=== PATIENT | female | born 1935 | race Caucasian/White ===

== ENCOUNTER → 2016-10-05 | Outpatient (CLI) | payer BC, OTHER ==
[~2016-10-05] MED LIST: ADVIN50/60 INH; ALBUAER2 INH; ASPI81TA28 PO; CYCL0.052 OPB; CYCL5TAB PO; DEXL60CA4 PO; EFFSR375 PO; FLUT0.15 NAE; FLUT1INH7 INH; FLX/5 PO; KLN5X PO; LDDP5 TOP; LEVO75TA5 PO; MIRA1TAB3 PO; MULT-506 PO; MYR25 PO; NRN100 PO; NRV/5 PO; NRV5 PO; NSNN50 NAE; POLY335025 PO; POTA1TAB PO; PRM/45 PO; PRM625 PO; SPRIN/30 INH; TIOT1SPR INH; ULT/50 PO; VENL37.593 PO; VNTHFA/IN INH; ZLF/100 PO; ZLF50 PO
--- NOTE | 2016-10-05 15:01 | DIAGNOSTIC IMAGING REPORT ---
CHEST 2 VIEWS ROUTINE CLINICAL HISTORY: Cough. COPD exacerbation. COMPARISON STUDY: Chest radiograph March 11, 2016. FINDINGS: Blunting of the right costophrenic angle is chronic. Cardiac size is normal. Mediastinal contours are stable. There is no evidence of pulmonary edema. No consolidation is identified to suggest pneumonia. The appearance of the chest is unchanged. Mild elevation of the right hemidiaphragm is unchanged. IMPRESSION: No acute cardiopulmonary findings. No change in appearance of the chest. Electronically signed by: Tru Howard M.D. 10/05/2016 2:59 PM
== END | disposition home or self-care (01) ==
LOC: C.RAD 14:26
PROVIDERS: ATTEND Internal Medicine
DX: J44.1 Chronic obstructive pulmonary disease with (acute) exacerbation (principal); R05 Cough

== ENCOUNTER 2016-12-14 13:29 | Emergency (ER) | payer BC, OTHER ==
[~2016-12-14 13:29] MED LIST changes: -ASPI81TA28 PO; -CYCL0.052 OPB; -CYCL5TAB PO; -DEXL60CA4 PO; -EFFSR375 PO; -FLUT0.15 NAE; -FLUT1INH7 INH; -FLX/5 PO; -KLN5X PO; -LDDP5 TOP; -LEVO75TA5 PO; -MULT-506 PO; -MYR25 PO; -NRN100 PO; -NRV/5 PO; -NRV5 PO; -POLY335025 PO; -POTA1TAB PO; -PRM/45 PO; -TIOT1SPR INH; -ULT/50 PO; -VENL37.593 PO; -VNTHFA/IN INH; -ZLF50 PO
[2016-12-14 13:36] VITALS: TEMP 37
[2016-12-14] MEDS ORDERED: FLX/5 PO (14:20)
[2016-12-14] MEDS ORDERED: VNTHFA/IN INH (14:21)
[2016-12-14 14:49] LABS: BASO % 0.4 %; BASO ABS # 0.02 K/uL (0-0.2); COMPLETE YES; EOS % 1.4 %; HEMATOCRIT 40.5 % (37-47); IG% 0.4 %; LYMPH % 23.1 %; LYMPH ABS # 1.29 K/uL (1.2-3.4); MEAN CELL VOLUME 87.5 fL (80-100); MEAN CORPUSCULAR HEMOGLOBIN 29.8 pg (25-34); MEAN CORPUSCULAR HGB CONC 34.1 g/dl (32-36); MEAN PLATELET VOLUME 10.1 fL (7.4-10.4); MONO % 5.9 %; NEUT % 68.8 %; PLATELET COUNT 133 K/uL (130-400); RED BLOOD COUNT 4.63 M/uL (4.2-5.4); WHITE BLOOD COUNT 5.59 K/uL (4.8-10.8)
[2016-12-14 15:10] LABS: BLOOD UREA NITROGEN 9 mg/dl (7-18); BUN/CREATININE RATIO 11.3 (10-20); CALCIUM 9.4 mg/dl (8.5-10.1); CARBON DIOXIDE 28 mmol/L (21-32); CHLORIDE 105 mmol/L (98-107); CREATININE 0.77 mg/dl (0.60-1.20); GLUCOSE 92 mg/dl (70-99); POTASSIUM 4.1 mmol/L (3.5-5.1); SODIUM 141 mmol/L (136-145)
[2016-12-14 15:10] LABS: URINE APPEARANCE CLEAR (CLEAR); URINE BILIRUBIN NEG (NEG); URINE COLOR DK YELLOW; URINE EPITHELIAL CELL AUTO >30 /lpf (0-5); URINE NITRITE NEG (NEG); URINE PH 6.5 (4.5-7.5); URINE SPECIFIC GRAVITY 1.027 (1.000-1.030); UROBILINOGEN NEG (NEG); ZZUR CULT IF INDIC CLEAN CATCH NO
[2016-12-14] MEDS ORDERED: CLONAZEPAM 0.5 MG TAB PO STA (15:15)
[2016-12-14 15:30] LABS: MANUAL MICROSCOPIC REQUIRED? NO; REVIEW REQ? YES
--- NOTE | 2016-12-14 15:37 | EMERGENCY ROOM VISIT NOTE ---
ED Visit Note First contact with patient: 13:45 The patient was seen and examined with Елена Pope PA-C. I agree with the history, physical and findings. Please see the note for disposition and details.
--- NOTE | 2016-12-14 16:07 | DIAGNOSTIC IMAGING REPORT ---
LEFT KNEE 2 VIEWS HISTORY: Left knee pain/fall COMPARISON: None. FINDINGS: There is a left total knee arthroplasty. The hardware appears intact. No acute fracture or dislocation within the left knee. Small knee effusion. Soft tissues are unremarkable. IMPRESSION: No fractures within the left knee. Small left knee effusion. Electronically signed by: Waldo Falcon M.D. 12/14/2016 4:05 PM Dictated Date/Time: 12/14/2016 4:04 PM
--- NOTE | 2016-12-14 16:08 | DIAGNOSTIC IMAGING REPORT ---
LEFT ANKLE MIN 3 VIEWS ROUTINE CLINICAL HISTORY: Left ankle pain following fall. COMPARISON: Left ankle radiographs June 12, 2013. FINDINGS: Alignment of the left ankle is in anatomic. No acute fracture is identified. Talar dome is intact. There are post surgical findings involving the left third digit. There is moderate posterior and plantar calcaneal spurring. IMPRESSION: 1. No acute fracture or dislocation of the left ankle. 2. Moderate posterior and plantar calcaneal spurring. Electronically signed by: Tru Howard M.D. 12/14/2016 4:06 PM Dictated Date/Time: 12/14/2016 4:05 PM
--- NOTE | 2016-12-14 16:09 | DIAGNOSTIC IMAGING REPORT ---
LEFT FOOT 3 VIEWS HISTORY: Left foot pain/fall COMPARISON: Left foot 06/12/2013. FINDINGS: No acute fracture or dislocation. Prior bunionectomy. Fracture through the metallic cortical plate at the third MTP joint remains unchanged. There is stable flattening of the third metatarsal head. The Lisfranc joint is well aligned. There are plantar and posterior calcaneal spurs. IMPRESSION: No change from the prior study. No acute fracture or dislocation within the left foot. Chronic findings as described above. Electronically signed by: Waldo Falcon M.D. 12/14/2016 4:08 PM Dictated Date/Time: 12/14/2016 4:06 PM
--- NOTE | 2016-12-14 16:39 | DIAGNOSTIC IMAGING REPORT ---
CT OF THE HEAD WITHOUT CONTRAST CLINICAL HISTORY: Fall. Questionable head injury. COMPARISON STUDY: Head CT September 25, 2013 and MRI of the brain January 17, 2014. CT DOSE: 1695.37 mGy.cm TECHNIQUE: Helical axial images of the head were obtained without IV contrast. Automated exposure control was utilized for the study. FINDINGS: This exam is mildly compromised by motion artifact. No acute intracranial hemorrhage, midline shift or mass effect is present. Ventricular system is stable. Basilar cisterns are patent. There are no extra-axial collections. White matter hypodensity suggests small vessel disease. There are no findings to suggest acute dural sinus thrombosis or acute territorial infarct. There is no calvarial fracture. IMPRESSION: 1. No acute intracranial findings. 2. No calvarial fracture. 3. Study mildly compromised by motion artifact. Electronically signed by: Tru Howard M.D. 12/14/2016 4:38 PM Dictated Date/Time: 12/14/2016 4:36 PM
--- NOTE | 2016-12-14 17:01 | EMERGENCY ROOM VISIT NOTE ---
History First contact with patient: 13:45 Chief Complaint: ANKLE PAIN Stated Complaint: LEFT ANKLE PAIN History of Present Illness The patient is a 81 year old female who presents to the Emergency Room accompanied by a correspondence school instructor and a granddaughter with complaints of left ankle and foot pain and left knee pain after falling last Wednesday. The patient herself has dementia and does not remember falling but now she states her left ankle, foot and knee hurts if she tries to bear weight. The correspondence school instructor noticed that there was some swelling and discoloration to the left ankle and foot. She also has a bruise on the right breast. The granddaughter states that normally she gets increased falls if she has a UTI. The granddaughter also states that last Wednesday she called into the doctor's office for her grandmother stating they thought she had a UTI and they just prescribe her Macrobid. A urinalysis was not performed. The patient does have a history of frequent UTIs. The patient is denying any head injury, back pain or hip pain. The patient lives with her but there is care at the house almost timekeeper. Review of Systems 10 system review was performed and was negative unless stated otherwise history of present illness. Past Medical/Surgical History Medical Problems: (1) COPD (chronic obstructive pulmonary disease) (2) Pneumonia (3) Urinary tract infection (4) UTI (urinary tract infection) Surgical Problems: (1) Hx of cholecystectomy Family History FH: gallbladder disease FH: lung disease Social History Smoking Status: Never Smoker Alcohol Use: none Drug Use: none Marital Status: single Housing Status: unknown Occupation Status: retired Current/Historical Medications Scheduled Albuterol Hfa (Ventolin Hfa), 2 PUFFS INH Q6H Aspirin (Aspirin Ec), 81 MG PO DAILY Cyclobenzaprine HCl (Cyclobenzaprine HCl), 2.5 MG PO QAM Cyclobenzaprine Hcl (Flexeril), 5 MG PO HS Cyclosporine (Ophth) (Restasis), 1 DROP OPB AMHS Dexlansoprazole (Dexilant), 60 MG PO DAILY Fluticasone Furoate-Vilanterol (Breo Ellipta 200-25 Mcg/INH), 1 PUFF INH QAM Gabapentin (Gabapentin), 100 MG PO BID Levothyroxine Sodium (Levothyroxine Sodium), 75 MCG PO DAILY Mirabegron (Myrbetriq Er), 50 MG PO DAILY Multivitamin (Multivitamin), 1 TAB PO DAILY Polyethylene Glycol 3350 (Miralax), 1 DOSE PO QAM Potassium Gluconate (Potassium Gluconate), 595 MG PO DAILY Sertraline HCl (Sertraline HCl), 100 MG PO BID Tiotropium [place] (Spiriva Handihaler), 1 CAP INH DAILY Scheduled PRN Albuterol (Ventolin), 2 PUFFS INH Q4-6HRS PRN for COPD Clonazepam (Clonazepam), 0.5 MG PO DAILY PRN for Anxiety Tramadol Hcl (Ultram), 50-100 MG PO Q6H PRN for Pain Allergies Coded Allergies: Sulfa Drugs (Verified Allergy, Unknown, lumps, 07/26/13) Aspirin (Verified Adverse Reaction, Unknown, STOMACH PAINS, 09/25/13) Physical Exam Vital Signs Date Time Temp Pulse Resp B/P Pulse Ox O2 Delivery O2 Flow Rate FiO2 12/14/16 15:08 83 16 157/78 96 Room Air 12/14/16 13:36 37.0 92 18 164/80 95 Room Air Physical Exam GENERAL: 81-year-old white female appears in no acute distress. MENTAL STATUS: Patient is alert. She does not answer many questions because she states she does not know or doesn't remember. HEAD: Atraumatic, nontender to palpation throughout. No bony abnormality noted. EYES: PERRLA. NECK: Supple, no lymphadenopathy noted. No carotid bruits noted. LUNGS: Clear auscultation without wheezes rales or rhonchi. CARDIAC: Regular rate and rhythm without murmur. Pulses is full and equal throughout. ABDOMEN: Positive bowel sounds all 4 quadrants. Soft, nontender to palpation without organomegaly or masses. NEURO: Grossly intact. SPINE: Entire spine nontender to palpation. BUTTOCKS: There are 2 small areas of ecchymosis noted on the buttocks. One on the right side and one on the left side. BREASTS: There is a large area of ecchymosis on the upper outer quadrant of the right breast. LEFT KNEE: Vertical incision noted from prior knee replacement. No gross bony deformity noted. No erythema or edema noted. The patient has point tenderness over the medial joint space. Limited range of motion secondary to pain. LEFT FOOT/ANKLE: No gross bony deformity noted. Minimal edema noted. Patient has full range of motion of her ankle. The patient does have point tenderness over the medial malleolus as well as over the medial aspect of the foot. Sensation is intact. Medical Decision & Procedures ER Provider Diagnostic Interpretation: CT OF THE HEAD WITHOUT CONTRAST CLINICAL HISTORY: Fall. Questionable head injury. COMPARISON STUDY: Head CT September 25, 2013 and MRI of the brain January 17, 2014. CT DOSE: 1695.37 mGy.cm TECHNIQUE: Helical axial images of the head were obtained without IV contrast. Automated exposure control was utilized for the study. FINDINGS: This exam is mildly compromised by motion artifact. No acute intracranial hemorrhage, midline shift or mass effect is present. Ventricular system is stable. Basilar cisterns are patent. There are no extra-axial collections. White matter hypodensity suggests small vessel disease. There are no findings to suggest acute dural sinus thrombosis or acute territorial infarct. There is no calvarial fracture. IMPRESSION: 1. No acute intracranial findings. 2. No calvarial fracture. 3. Study mildly compromised by motion artifact. Electronically signed by: Tru Howard M.D. 12/14/2016 4:38 PM LEFT ANKLE MIN 3 VIEWS ROUTINE CLINICAL HISTORY: Left ankle pain following fall. COMPARISON: Left ankle radiographs June 12, 2013. FINDINGS: Alignment of the left ankle is in anatomic. No acute fracture is identified. Talar dome is intact. There are post surgical findings involving the left third digit. There is moderate posterior and plantar calcaneal spurring. IMPRESSION: 1. No acute fracture or dislocation of the left ankle. 2. Moderate posterior and plantar calcaneal spurring. Electronically signed by: Tru Howard M.D. 12/14/2016 4:06 PM LEFT FOOT 3 VIEWS HISTORY: Left foot pain/fall COMPARISON: Left foot 06/12/2013. FINDINGS: No acute fracture or dislocation. Prior bunionectomy. Fracture through the metallic cortical plate at the third MTP joint remains unchanged. There is stable flattening of the third metatarsal head. The Lisfranc joint is well aligned. There are plantar and posterior calcaneal spurs. IMPRESSION: No change from the prior study. No acute fracture or dislocation within the left foot. Chronic findings as described above. Electronically signed by: Waldo Falcon M.D. 12/14/2016 4:08 PM LEFT KNEE 2 VIEWS HISTORY: Left knee pain/fall COMPARISON: None. FINDINGS: There is a left total knee arthroplasty. The hardware appears intact. No acute fracture or dislocation within the left knee. Small knee effusion. Soft tissues are unremarkable. IMPRESSION: No fractures within the left knee. Small left knee effusion. Electronically signed by: Waldo Falcon M.D. 12/14/2016 4:05 PM Dictated Date/Time: 12/14/2016 4:04 PM Laboratory Results 12/14/16 14:40 Red Blood Count 4.63, Mean Corpuscular Volume 87.5, Mean Corpuscular Hemoglobin 29.8, Mean Corpuscular Hemoglobin Concent 34.1, Mean Platelet Volume 10.1, Neutrophils (%) (Auto) 68.8, Lymphocytes (%) (Auto) 23.1, Monocytes (%) (Auto) 5.9, Eosinophils (%) (Auto) 1.4, Basophils (%) (Auto) 0.4, Neutrophils # (Auto) 3.85, Lymphocytes # (Auto) 1.29, Monocytes # (Auto) 0.33, Eosinophils # (Auto) 0.08, Basophils # (Auto) 0.02 12/14/16 14:40 Test 12/14/16 14:40 12/14/16 14:50 White Blood Count 5.59 K/uL (4.8-10.8) Red Blood Count 4.63 M/uL (4.2-5.4) Hemoglobin 13.8 g/dL (12.0-16.0) Hematocrit 40.5 % (37-47) Mean Corpuscular Volume 87.5 fL (80-100) Mean Corpuscular Hemoglobin 29.8 pg (25-34) Mean Corpuscular Hemoglobin Concent 34.1 g/dl (32-36) Platelet Count 133 K/uL (130-400) Mean Platelet Volume 10.1 fL (7.4-10.4) Neutrophils (%) (Auto) 68.8 % Lymphocytes (%) (Auto) 23.1 % Monocytes (%) (Auto) 5.9 % Eosinophils (%) (Auto) 1.4 % Basophils (%) (Auto) 0.4 % Neutrophils # (Auto) 3.85 K/uL (1.4-6.5) Lymphocytes # (Auto) 1.29 K/uL (1.2-3.4) Monocytes # (Auto) 0.33 K/uL (0.11-0.59) Eosinophils # (Auto) 0.08 K/uL (0-0.5) Basophils # (Auto) 0.02 K/uL (0-0.2) RDW Standard Deviation 45.6 fL (36.4-46.3) RDW Coefficient of Variation 14.4 % (11.5-14.5) Immature Granulocyte % (Auto) 0.4 % Immature Granulocyte # (Auto) 0.02 K/uL (0.00-0.02) Anion Gap 8.0 mmol/L (3-11) Estimated GFR () 83.3 Estimated GFR (Non- 71.9 BUN/Creatinine Ratio 11.3 (10-20) Calcium Level 9.4 mg/dl (8.5-10.1) Urine Color DK YELLOW Urine Appearance CLEAR (CLEAR) Urine pH 6.5 (4.5-7.5) Urine Specific Saxe 1.027 (1.000-1.030) Urine Protein NEG (NEG) Urine Glucose (UA) NEG (NEG) Urine Ketones NEG (NEG) Urine Occult Blood NEG (NEG) Urine Nitrite NEG (NEG) Urine Bilirubin NEG (NEG) Urine Urobilinogen NEG (NEG) Urine Leukocyte Esterase TRACE (NEG) Urine WBC (Auto) 5-10 /hpf (0-5) Urine RBC (Auto) 0-4 /hpf (0-4) Urine Hyaline Casts (Auto) 0 /lpf (0-5) Urine Epithelial Cells (Auto) >30 /lpf (0-5) Urine Bacteria (Auto) NEG (NEG) Urine Renal Epithelial Cells 0-5 /lpf (0-5) Urine Pathogenic Casts /lpf (0) Medications Administered Medications (Trade) Dose Ordered Sig/Yamileth Route Start Time Stop Time Status Last Admin Dose Admin Clonazepam (Klonopin Tab) 0.5 mg NOW STAT PO 12/14/16 15:15 12/14/16 15:16 DC 12/14/16 15:57 0.5 MG ED Course The patient was evaluated. IV access was obtained. CBC and differential, renal profile was ordered. Labs are reviewed and were unremarkable. White count was normal. Urinalysis was ordered. X-rays of the left knee, left ankle and left foot were ordered and interpreted by the radiologist and myself as above without any acute findings. The patient was reevaluated. The patient was starting to get agitated and therefore she was given her clonazepam 0.5 mg by mouth. Urinalysis was negative. The patient was independently evaluated byDr. Sahu who agreed with treatment plan. An Kai wrap was applied to the left knee. The granddaughter stated that they have a walker at home for the patient to aid in ambulation. The patient and granddaughter were informed of all findings. The patient was discharged home in stable condition. Medical Decision Differential diagnosis include subdural hematoma, subarachnoid hemorrhage, acute UTI Fractures versus contusions of the ankle foot and knee Impression Primary Impression: Left ankle pain Additional Impressions: Left foot pain Left knee pain Falls frequently Departure Information Dispostion Home / Self-Care Condition GOOD Referrals Moi Erwin M.D. (PCP) Forms HOME CARE DOCUMENTATION FORM, IMPORTANT VISIT INFORMATION Patient Instructions [facility] [employer] Additional Instructions Ambulate with a walker at all times. Use the Kai wrap on the left knee until ambulation is tolerable without it. Tylenol as needed for pain. Follow-up with Dr. Erwin in 2 days for reevaluation. Problem Qualifiers Primary Impression: Left ankle pain Chronicity: acute Qualified Codes: M25.572 - Pain in left ankle and joints of left foot Additional Impressions: Left knee pain Chronicity: acute Qualified Codes: M25.562 - Pain in left knee
[2016-12-14 17:20] VITALS: BP 158/80; PULSE 83; O2SAT 95
[2017-02-19] MEDS ORDERED: LDDP5 TOP (11:57)
[2017-02-19] MEDS ORDERED: FLUT0.15 NAE (11:57)
[2017-02-19] MEDS ORDERED: POTA1TAB PO (12:32)
[2017-02-19] MEDS ORDERED: MULT-506 PO (13:45)
[2017-02-19] MEDS ORDERED: NRN100 PO (14:20)
[2017-02-19] MEDS ORDERED: FLUT1INH7 INH (14:20)
[2017-02-19] MEDS ORDERED: KLN5X PO (14:20)
[2017-02-19] MEDS ORDERED: CYCL5TAB PO (14:20)
== END 2016-12-14 17:20 | disposition home or self-care (01) ==
LOC: C.EDB 13:30 → C.EDA 17:20
DX: M25.572 Pain in left ankle and joints of left foot (principal); M79.672 Pain in left foot; M25.562 Pain in left knee; W19.XXXA Unspecified fall, initial encounter; R29.6 Repeated falls; F03.90 Unspecified dementia, unspecified severity, without behavioral disturbance, psychotic disturbance, mood disturbance, and anxiety; J44.9 Chronic obstructive pulmonary disease, unspecified; Z87.440 Personal history of urinary (tract) infections; Z83.79 Family history of other diseases of the digestive system; Z83.6 Family history of other diseases of the respiratory system; Z79.82 Long term (current) use of aspirin; Z79.899 Other long term (current) drug therapy

== ENCOUNTER 2016-12-22 10:33 | Observation (INO) | payer BC, OTHER ==
[~2016-12-22] VITALS: Ht 154.9 cm; Wt 109.4 kg
[~2016-12-22 10:33] MED LIST changes: -ADVIN50/60 INH; +FLX/5 PO; -NSNN50 NAE; -PRM625 PO; +VNTHFA/IN INH
[2016-12-22 11:39] LABS: URINE APPEARANCE CLEAR (CLEAR); URINE BILIRUBIN NEG (NEG); URINE COLOR YELLOW; URINE EPITHELIAL CELL AUTO >30 /lpf (0-5); URINE NITRITE NEG (NEG); URINE PH 6.5 (4.5-7.5); URINE SPECIFIC GRAVITY 1.027 (1.000-1.030); UROBILINOGEN NEG (NEG)
[2016-12-22 11:48] LABS: MANUAL MICROSCOPIC REQUIRED? NO; REVIEW REQ? NO
[2016-12-22] MEDS ORDERED: PRM/45 PO (11:57)
[2016-12-22 12:16] LABS: BASO % 0.5 %; BASO ABS # 0.03 K/uL (0-0.2); COMPLETE YES; EOS % 1.5 %; HEMATOCRIT 38.1 % (37-47); IG% 0.2 %; LYMPH % 17.1 %; LYMPH ABS # 1.02 K/uL (1.2-3.4); MEAN CELL VOLUME 88.8 fL (80-100); MEAN CORPUSCULAR HEMOGLOBIN 30.8 pg (25-34); MEAN CORPUSCULAR HGB CONC 34.6 g/dl (32-36); MEAN PLATELET VOLUME 10.4 fL (7.4-10.4); MONO % 7.4 %; NEUT % 73.3 %; PLATELET COUNT 127 K/uL (130-400); RED BLOOD COUNT 4.29 M/uL (4.2-5.4); WHITE BLOOD COUNT 5.98 K/uL (4.8-10.8)
--- NOTE | 2016-12-22 12:19 | DIAGNOSTIC IMAGING REPORT ---
HEAD CT NONCONTRAST CT DOSE: 1099.04 mGy.cm HISTORY: Trauma. Mental status change. eval for bleed TECHNIQUE: Multiaxial CT images of the head were performed without the use of intravenous contrast. Comparison: 12/14/2016 Findings: The paranasal sinuses and mastoid air cells are clear. The calvarium and skull base are intact. The ventricles and sulci are within normal limits. There is no mass, hematoma, midline shift, or acute infarct. Age-related chronic small vessel change and scattered areas of atrophy Impression: No acute intracranial abnormality. Age-related change. No change from the prior study Electronically signed by: Colten Pope M.D. 12/22/2016 12:18 PM Dictated Date/Time: 12/22/2016 12:17 PM
--- NOTE | 2016-12-22 12:20 | DIAGNOSTIC IMAGING REPORT ---
CT OF THE CERVICAL SPINE CLINICAL HISTORY: Neck pain status post trauma COMPARISON STUDY: No previous studies for comparison. CT DOSE: TECHNIQUE: CT scan of the cervical spine was performed from the skull base to the thoracic inlet. Images are reviewed in the axial, sagittal, and coronal planes. IV contrast was not administered for this examination. FINDINGS: The visualized portions of the lung apices reveal no evidence of pneumothorax. 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 The prevertebral soft tissues are normal. No fractures or subluxations are visualized. There is a nonspecific 9 x 6 x 6 mm lytic focus involving the C3 vertebra. There are multilevel degenerative changes. There is slight reversal of the normal cervical lordosis. IMPRESSION: 1. No evidence of acute fracture or traumatic subluxation 2. Slight reversal the normal cervical lordosis 3. Nonspecific 9 mm C3 lytic lesion Electronically signed by: Carlos Baptiste M.D. 12/22/2016 12:19 PM Dictated Date/Time: 12/22/2016 12:16 PM
--- NOTE | 2016-12-22 12:23 | DIAGNOSTIC IMAGING REPORT ---
CHEST ONE VIEW PORTABLE CLINICAL HISTORY: eval for pt dyspnea COMPARISON STUDY: 10/05/2016 FINDINGS: The bones soft tissues and hemidiaphragms are normal. The cardiomediastinal silhouette is normal. The lungs are clear. The pulmonary vasculature is normal. IMPRESSION: Negative chest. Electronically signed by: Colten Pope M.D. 12/22/2016 12:22 PM Dictated Date/Time: 12/22/2016 12:21 PM
[2016-12-22 12:30] LABS: PROTHROMBIN TIME (PATIENT) 10.7 SECONDS (9.0-12.0)
[2016-12-22 12:35] LABS: ALT/SGPT 34 U/L (12-78); AST/SGOT 21 U/L (15-37); BLOOD UREA NITROGEN 15 mg/dl (7-18); BUN/CREATININE RATIO 17.6 (10-20); CALCIUM 8.7 mg/dl (8.5-10.1); CARBON DIOXIDE 25 mmol/L (21-32); CHLORIDE 107 mmol/L (98-107); CREATININE 0.85 mg/dl (0.60-1.20); GLUCOSE 109 mg/dl (70-99); SODIUM 141 mmol/L (136-145)
[2016-12-22 12:39] LABS: ALKALINE PHOSPHATASE 71 U/L (45-117)
--- NOTE | 2016-12-22 13:35 | DIAGNOSTIC IMAGING REPORT ---
PELVIS 1 OR 2 VIEW ROUTINE CLINICAL HISTORY: Pelvic pain status post trauma COMPARISON STUDY: 12/12/2009 FINDINGS: No acute fractures are visualized. There are no dislocations. Degenerative changes are present within the lower lumbar spine. IMPRESSION: No acute fractures identified. Electronically signed by: Carlos Baptiste M.D. 12/22/2016 1:34 PM Dictated Date/Time: 12/22/2016 1:33 PM
--- NOTE | 2016-12-22 13:35 | DIAGNOSTIC IMAGING REPORT ---
RIGHT HUMERUS MIN 2 VIEWS ROUTINE CLINICAL HISTORY: Right humeral pain status post trauma COMPARISON: None. DISCUSSION: 2 views reveal no fractures or dislocations. IMPRESSION: No fractures or dislocations identified. Electronically signed by: Carlos Baptiste M.D. 12/22/2016 1:34 PM Dictated Date/Time: 12/22/2016 1:34 PM
--- NOTE | 2016-12-22 13:39 | DIAGNOSTIC IMAGING REPORT ---
LEFT HIP UNILATERAL 2 VIEWS CLINICAL HISTORY: Left hip pain status post trauma COMPARISON: None. DISCUSSION: 2 views reveal no fractures or dislocations. IMPRESSION: No fractures or dislocations identified. Electronically signed by: Carlos Baptiste M.D. 12/22/2016 1:38 PM Dictated Date/Time: 12/22/2016 1:38 PM
--- NOTE | 2016-12-22 13:42 | DIAGNOSTIC IMAGING REPORT ---
LEFT KNEE 2 VIEWS CLINICAL HISTORY: Left knee pain. FINDINGS: AP and crosstable lateral views of left knee are compared to study dated 12/14/2016. The skeletal structures are osteopenic. A hinged left knee arthroplasty is in near-anatomic alignment. There has been undersurface remodeling of the patella. No acute fracture is seen. A small joint effusion is noted. Mild prepatellar soft tissue swelling is observed. IMPRESSION: 1. Mild soft tissue swelling and joint effusion. No fracture is seen. 2. A in left knee arthroplasty is in near-anatomic alignment. Electronically signed by: Robert Bertrand M.D. 12/22/2016 1:41 PM Dictated Date/Time: 12/22/2016 1:40 PM
--- NOTE | 2016-12-22 13:42 | DIAGNOSTIC IMAGING REPORT ---
LEFT FEMUR 2 VIEWS ROUTINE CLINICAL HISTORY: eval for fx trauma. Pain. COMPARISON: None. DISCUSSION: Prior total left knee replacement. No acute process specifically the femur. There is no evidence for soft tissue swelling. IMPRESSION: No acute process of the femur Electronically signed by: Colten Pope M.D. 12/22/2016 1:41 PM Dictated Date/Time: 12/22/2016 1:40 PM
[2016-12-22] MEDS ORDERED: LORAZEPAM 2 MG/ML 1 ML VIAL IV STA (14:01)
--- NOTE | 2016-12-22 16:46 | EMERGENCY ROOM VISIT NOTE ---
History Report prepared by Jacqueline: Olimpia Ellis Under the Supervision of: Dr. Nadeem Gant M.D. First contact with patient: 11:08 Chief Complaint: FALL Stated Complaint: FALL History of Present Illness The patient is a 81 year old female who presents to the Emergency Room via ambulance to be evaluated status post a fall this morning. The patient's caregiver walked in the house this morning around 7:50AM and heard the patient fall in the bedroom. She did not witness the fall. The patient did not seem to have lost consciousness. She was found sitting on the floor near her dresser. At that time, the patient refused help from her caregiver to get up. Per nursing staff, the patient has bruising to her left head, right arm, and left lower back. The patient is on baby aspirin. The patient had a fall last week and was evaluated in the emergency room. She was discharged home at that time. History is limited secondary to dementia. Source of History: caregiver, nursing staff History Limited By: dementia Onset: 7:50 this morning Position: other (global) Quality: other (fall) Timing: other (episode) Review of Systems Limited secondary to dementia. Past Medical & Surgical Medical Problems: (1) COPD (chronic obstructive pulmonary disease) (2) Pneumonia (3) Urinary tract infection (4) UTI (urinary tract infection) Surgical Problems: (1) Hx of cholecystectomy Family History FH: gallbladder disease FH: lung disease Social History Smoking Status: Never Smoker Alcohol Use: none Drug Use: none Marital Status: single Housing Status: unknown Occupation Status: retired Current/Historical Medications Scheduled Aspirin (Aspirin Ec), 81 MG PO DAILY Cyclobenzaprine Hcl (Flexeril), 5 MG PO HS Cyclosporine (Ophth) (Restasis), 1 DROP OPB AMHS Dexlansoprazole (Dexilant), 60 MG PO DAILY Estrogens, Conjugated (Premarin), 0.45 MG PO DAILY Fluticasone Furoate-Vilanterol (Breo Ellipta 200-25 Mcg/INH), 1 PUFF INH QAM Fluticasone Propionate (Nasal) (Flonase Allergy Relief), 2 SPRAYS NIMA DAILY Gabapentin (Gabapentin), 100 MG PO BID Levothyroxine Sodium (Levothyroxine Sodium), 75 MCG PO DAILY Lidocaine (Lidocaine), 1 PATCH TOP Q12 Mirabegron (Myrbetriq Er), 50 MG PO DAILY Multivitamin (Multivitamin), 1 TAB PO DAILY Polyethylene Glycol 3350 (Miralax), 1 DOSE PO QAM Potassium Gluconate (Potassium Gluconate), 595 MG PO DAILY Sertraline HCl (Sertraline HCl), 100 MG PO BID Tiotropium [place] (Spiriva Handihaler), 1 CAP INH DAILY Scheduled PRN Albuterol (Ventolin), 2 PUFFS INH Q4-6HRS PRN for COPD Clonazepam (Clonazepam), 0.5 MG PO DAILY PRN for Anxiety Tramadol Hcl (Ultram), 50-100 MG PO Q6H PRN for Pain Allergies Coded Allergies: Donepezil (Unverified Allergy, Unknown, UNKNOWN, 12/22/16) Sulfa Drugs (Verified Allergy, Unknown, lumps, 12/22/16) Zolpidem (Unverified Allergy, Unknown, UNKNOWN, 12/22/16) Aspirin (Verified Adverse Reaction, Unknown, STOMACH PAINS, 12/22/16) Physical Exam Vital Signs Date Time Temp Pulse Resp B/P Pulse Ox O2 Delivery O2 Flow Rate FiO2 12/22/16 15:24 87 22 169/100 94 Room Air 12/22/16 13:45 90 24 207/117 97 Room Air 12/22/16 13:36 82 12/22/16 12:30 83 20 144/96 98 Room Air 12/22/16 11:05 81 12/22/16 10:50 36.7 83 22 159/108 96 Room Air Physical Exam Constitutional: Vital signs reviewed. Eyes: Pupils are equal round reactive to light. Conjunctiva are noninjected. ENT: Pharynx is clear without erythema or exudate. Mucous membranes are moist. Neck supple without meningeal signs. Respiratory: Clear to auscultation bilaterally. Breath sounds are equal bilaterally. Cardiovascular: Regular rate and rhythm. No rubs or gallops. GI: Soft, nondistended and nontender. Bowel sounds are present. Musculoskeletal: No peripheral edema. No lower extremity tenderness. Bruise to left forehead and right upper arm with tenderness. No midline tenderness to the cervical spine. Tenderness to the left hip and left knee. Integumentary: No cyanosis. Neurological: The patient is awake and alert. No focal deficits. Psychiatric: Slightly agitated. Medical Decision & Procedures ER Provider Diagnostic Interpretation: Radiology results as stated below per my review and the radiologist's interpretation: CT OF THE CERVICAL SPINE CLINICAL HISTORY: Neck pain status post trauma COMPARISON STUDY: No previous studies for comparison. CT DOSE: TECHNIQUE: CT scan of the cervical spine was performed from the skull base to the thoracic inlet. Images are reviewed in the axial, sagittal, and coronal planes. IV contrast was not administered for this examination. FINDINGS: The visualized portions of the lung apices reveal no evidence of pneumothorax. 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 The prevertebral soft tissues are normal. No fractures or subluxations are visualized. There is a nonspecific 9 x 6 x 6 mm lytic focus involving the C3 vertebra. There are multilevel degenerative changes. There is slight reversal of the normal cervical lordosis. IMPRESSION: 1. No evidence of acute fracture or traumatic subluxation 2. Slight reversal the normal cervical lordosis 3. Nonspecific 9 mm C3 lytic lesion Electronically signed by: Carlos Baptiste M.D. 12/22/2016 12:19 PM Dictated Date/Time: 12/22/2016 12:16 PM CHEST ONE VIEW PORTABLE CLINICAL HISTORY: eval for pt dyspnea COMPARISON STUDY: 10/05/2016 FINDINGS: The bones soft tissues and hemidiaphragms are normal. The cardiomediastinal silhouette is normal. The lungs are clear. The pulmonary vasculature is normal. IMPRESSION: Negative chest. Electronically signed by: Colten Pope M.D. 12/22/2016 12:22 PM Dictated Date/Time: 12/22/2016 12:[address] NONCONTRAST CT DOSE: 1099.04 mGy.cm HISTORY: Trauma. Mental status change. eval for bleed TECHNIQUE: Multiaxial CT images of the head were performed without the use of intravenous contrast. Comparison: 12/14/2016 Findings: The paranasal sinuses and mastoid air cells are clear. The calvarium and skull base are intact. The ventricles and sulci are within normal limits. There is no mass, hematoma, midline shift, or acute infarct. Age-related chronic small vessel change and scattered areas of atrophy Impression: No acute intracranial abnormality. Age-related change. No change from the prior study Electronically signed by: Colten Pope M.D. 12/22/2016 12:18 PM Dictated Date/Time: 12/22/2016 12:17 PM LEFT FEMUR 2 VIEWS ROUTINE CLINICAL HISTORY: eval for fx trauma. Pain. COMPARISON: None. DISCUSSION: Prior total left knee replacement. No acute process specifically the femur. There is no evidence for soft tissue swelling. IMPRESSION: No acute process of the femur Electronically signed by: Colten Pope M.D. 12/22/2016 1:41 PM Dictated Date/Time: 12/22/2016 1:40 PM LEFT HIP UNILATERAL 2 VIEWS CLINICAL HISTORY: Left hip pain status post trauma COMPARISON: None. DISCUSSION: 2 views reveal no fractures or dislocations. IMPRESSION: No fractures or dislocations identified. Electronically signed by: Carlos Baptiste M.D. 12/22/2016 1:38 PM Dictated Date/Time: 12/22/2016 1:38 PM RIGHT HUMERUS MIN 2 VIEWS ROUTINE CLINICAL HISTORY: Right humeral pain status post trauma COMPARISON: None. DISCUSSION: 2 views reveal no fractures or dislocations. IMPRESSION: No fractures or dislocations identified. Electronically signed by: Carlos Baptiste M.D. 12/22/2016 1:34 PM Dictated Date/Time: 12/22/2016 1:34 PM LEFT KNEE 2 VIEWS CLINICAL HISTORY: Left knee pain. FINDINGS: AP and crosstable lateral views of left knee are compared to study dated 12/14/2016. The skeletal structures are osteopenic. A hinged left knee arthroplasty is in near-anatomic alignment. There has been undersurface remodeling of the patella. No acute fracture is seen. A small joint effusion is noted. Mild prepatellar soft tissue swelling is observed. IMPRESSION: 1. Mild soft tissue swelling and joint effusion. No fracture is seen. 2. A in left knee arthroplasty is in near-anatomic alignment. Electronically signed by: Robert Bertrand M.D. 12/22/2016 1:41 PM Dictated Date/Time: 12/22/2016 1:40 PM PELVIS 1 OR 2 VIEW ROUTINE CLINICAL HISTORY: Pelvic pain status post trauma COMPARISON STUDY: 12/12/2009 FINDINGS: No acute fractures are visualized. There are no dislocations. Degenerative changes are present within the lower lumbar spine. IMPRESSION: No acute fractures identified. Electronically signed by: Carlos Baptiste M.D. 12/22/2016 1:34 PM Dictated Date/Time: 12/22/2016 1:33 PM Laboratory Results 12/22/16 11:55 Red Blood Count 4.29, Mean Corpuscular Volume 88.8, Mean Corpuscular Hemoglobin 30.8, Mean Corpuscular Hemoglobin Concent 34.6, Mean Platelet Volume 10.4, Neutrophils (%) (Auto) 73.3, Lymphocytes (%) (Auto) 17.1, Monocytes (%) (Auto) 7.4, Eosinophils (%) (Auto) 1.5, Basophils (%) (Auto) 0.5, Neutrophils # (Auto) 4.39, Lymphocytes # (Auto) 1.02, Monocytes # (Auto) 0.44, Eosinophils # (Auto) 0.09, Basophils # (Auto) 0.03 12/22/16 11:55 Test 12/22/16 11:10 12/22/16 11:55 Urine Color YELLOW Urine Appearance CLEAR (CLEAR) Urine pH 6.5 (4.5-7.5) Urine Specific [place] 1.027 (1.000-1.030) Urine Protein NEG (NEG) Urine Glucose (UA) NEG (NEG) Urine Ketones NEG (NEG) Urine Occult Blood NEG (NEG) Urine Nitrite NEG (NEG) Urine Bilirubin NEG (NEG) Urine Urobilinogen NEG (NEG) Urine Leukocyte Esterase TRACE (NEG) Urine WBC (Auto) 1-5 /hpf (0-5) Urine RBC (Auto) 0-4 /hpf (0-4) Urine Hyaline Casts (Auto) 1-5 /lpf (0-5) Urine Epithelial Cells (Auto) >30 /lpf (0-5) Urine Bacteria (Auto) NEG (NEG) White Blood Count 5.98 K/uL (4.8-10.8) Red Blood Count 4.29 M/uL (4.2-5.4) Hemoglobin 13.2 g/dL (12.0-16.0) Hematocrit 38.1 % (37-47) Mean Corpuscular Volume 88.8 fL (80-100) Mean Corpuscular Hemoglobin 30.8 pg (25-34) Mean Corpuscular Hemoglobin Concent 34.6 g/dl (32-36) Platelet Count 127 K/uL (130-400) Mean Platelet Volume 10.4 fL (7.4-10.4) Neutrophils (%) (Auto) 73.3 % Lymphocytes (%) (Auto) 17.1 % Monocytes (%) (Auto) 7.4 % Eosinophils (%) (Auto) 1.5 % Basophils (%) (Auto) 0.5 % Neutrophils # (Auto) 4.39 K/uL (1.4-6.5) Lymphocytes # (Auto) 1.02 K/uL (1.2-3.4) Monocytes # (Auto) 0.44 K/uL (0.11-0.59) Eosinophils # (Auto) 0.09 K/uL (0-0.5) Basophils # (Auto) 0.03 K/uL (0-0.2) RDW Standard Deviation 47.4 fL (36.4-46.3) RDW Coefficient of Variation 14.6 % (11.5-14.5) Immature Granulocyte % (Auto) 0.2 % Immature Granulocyte # (Auto) 0.01 K/uL (0.00-0.02) Prothrombin Time 10.7 SECONDS (9.0-12.0) Prothromb Time International Ratio 1.0 (0.9-1.1) Activated Partial Thromboplast Time 25.6 SECONDS (21.0-31.0) Partial Thromboplastin Ratio 1.0 Anion Gap 9.0 mmol/L (3-11) Est Creatinine Clear Calc Drug Dose 58.3 ml/min Estimated GFR () 74.0 Estimated GFR (Non- 63.8 BUN/Creatinine Ratio 17.6 (10-20) Calcium Level 8.7 mg/dl (8.5-10.1) Total Bilirubin 0.5 mg/dl (0.2-1) Direct Bilirubin 0.1 mg/dl (0-0.2) Aspartate Amino Transf (AST/SGOT) 21 U/L (15-37) Alanine Aminotransferase (ALT/SGPT) 34 U/L (12-78) Alkaline Phosphatase 71 U/L (45-117) Troponin I < 0.015 ng/ml (0-0.045) Total Protein 7.0 gm/dl (6.4-8.2) Albumin 3.3 gm/dl (3.4-5.0) Laboratory results as reviewed by me. Medications Administered Medications (Trade) Dose Ordered Sig/Yamileth Route Start Time Stop Time Status Last Admin Dose Admin Lorazepam (Ativan Inj) 0.5 mg NOW STAT IV 12/22/16 14:01 12/22/16 14:02 DC 12/22/16 14:13 0.5 MG ECG Indication: other (fall) Rate (beats per minute): 82 Rhythm: normal sinus Findings: Q waves (Lead 3), no acute ischemic change, no ectopy ED Course 1110: The patient was evaluated in room A12. A complete history and physical exam was performed. 1325: I reassessed the patient. She just got back from x-ray. 1400: I reassessed the patient. She was hypertensive and extremely agitated. Her granddaughter who is an RN and health care proxy said that this is about the time that she would be sundown. She normally takes Klonopin. She is concerned about her being admitted or put in rehab due to dementia and agitation , but her son does not feel she is safe to go home because of her falls. The geriatric case manager will talk to the [facility] about a possible rehab facility for admission. 1401: Ordered Lorazepam 0.5 mg IV. 1438: I reassessed the patient. She was much more calm. 1615: The patient was unable to be placed at [facility] and will be hospitalized for placement. 1620: I discussed the case with Dr. Chadd Wylie [facility] Hospitalist. The patient will be evaluated for further management. Medical Decision This is an 81-year-old female who presents with injuries after a fall. Differential diagnosis includes intracranial hemorrhage, cervical fracture, humeral fracture, hip fracture, metabolic derangement. I did perform a limited focused review of portions of the patient's old chart on the electronic medical record. She was here December 14 after she fell and developed left ankle pain. She was discharged home after evaluation. I did evaluate the patient as noted above. The patient presents after a fall. No one witnessed fall by her sap administrator did hear her fall when she got home. There was no witnessed LOC. IV access was established. The patient was placed on a continuous groundwater monitoring technician. I did order and personally review the patient' s 12-lead EKG and multiple x-rays as described above. She has no evidence of fractures. I did order and review the patient's blood work as noted in the electronic medical record. She is very mild thrombocytopenia. I did order a CT of the head and cervical spine. I did review the images myself as well as the radiology report as described above. There is no evidence of acute abnormality. She does have a bony lesion at C3. Urinalysis was negative for infection. I did reassess the patient. She is now very agitated and required Ativan 0.5 mg IV to calm her down. I did obtain additional history from her family. Her healthcare proxy was an RN was at the bedside. Her family stated that the patient fell twice today. Her witnessed her fall earlier today. They feel she is too unstable to go home. I did speak to the geriatric case manager and we did attempt placement but were unsuccessful. The patient was therefore hospitalized for placement. I did discuss case with the hospitalist. Consults Time Called: 1616 Consulting Physician: Dr. Chadd CADENA Hospitalist Returned Call: 1620 I discussed the case with him. The patient will be evaluated for further management. Impression Primary Impression: Acute head injury Additional Impressions: Multiple falls Ambulatory dysfunction Contusion of multiple sites Thrombocytopenia Agitation Scribe Attestation The scribe's documentation has been prepared under my direct and personally reviewed by me in its entirety. I confirm that the note above accurately reflects all work, treatment, procedures, and medical decision making performed by me. Departure Information Dispostion Being Evaluated By Hospitalist Referrals Moi Erwin M.D. (PCP) Patient Instructions My [facility] Problem Qualifiers Primary Impression: Acute head injury Encounter type: initial encounter Qualified Codes: S09.90XA - Unspecified injury of head, initial encounter
[2016-12-22] MEDS ORDERED: ALBUTEROL HFA 8 GM INHALER INH PRN (17:00)
[2016-12-22] MEDS ORDERED: TRAMADOL HCL 50 MG TAB PO PRN (17:00)
[2016-12-22] MEDS ORDERED: HydrALAZINE HCL 20 MG/ML VIAL IV. PRN (17:00)
[2016-12-22] MEDS ORDERED: ACETAMINOPHEN 325 MG TAB PO PRN (17:00)
[2016-12-22 18:34] VITALS: BP 144/86; PULSE 80; TEMP 36.9; O2SAT 93; Ht 154.9 cm; Wt 109.4 kg
[2016-12-22] MEDS ORDERED: AMLODIPINE BESYLATE 5 MG TAB PO ONE (19:00)
[2016-12-22] MEDS: RESTASIS~ORDER AWAITING ACTION SCH (19:00)
[2016-12-22] MEDS ORDERED: IV FLUIDS COMPLETED PRN (19:30)
--- NOTE | 2016-12-22 20:28 | History and Physical ---
History & Physical Date & Time of Service: Dec 22, 2016 at 17:13 Chief Complaint: FALL Primary Care Physician: Moi Erwin M.D. History of Present Illness Source: patient, family This is a 81 y/o female who presented to the ED s/p fall this morning. History was obtained from her son (Solomon). According to the son, patient lives with his other brother, who takes care of her at night and nursing aid comes during the day. Today in the morning around 6am patient was found in the bathroom by the caregiver after a fall. She hit her head on the bath tub. No one witness the fall. According to the brother she didn't loss consciousness. Later in the morning, patient was found sitting on the floor near her dresser by the nurse aid. No one witness the fall this time either. Per son patient dementia has been progressively getting worse for past couple of months. She had multiple fall in the past. Patient had a fall last week and was evaluated by the ER. She usually walk around at home with assistance. Currently she is on Aspirin 81mg. Past Medical/Surgical History Medical Problems: (1) COPD (chronic obstructive pulmonary disease) Status: Chronic (2) Pneumonia Status: Resolved (3) Urinary tract infection Status: Resolved (4) UTI (urinary tract infection) Status: Resolved (5) Dementia Status: Chronic (6) Hypothyroidism Status: Chronic (7) HTN Status: Chronic (8) Back spasm Status: Chronic (9) Anxiety Status: Chronic Surgical Problems: (1) Hx of cholecystectomy Status: Resolved Family History FH: gallbladder disease FH: lung disease Social History Smoking Status: Never Smoker Drug Use: none Marital Status: single Housing status: lives with family Occupational Status: retired Immunizations History of Influenza Vaccine: Yes Influenza Vaccine Date: Jul 14, 2013 History of Tetanus Vaccine?: unknown History of Pneumococcal: Yes Pneumococcal Date: Oct 14, 2006 History of Hepatitis B Vaccine: No Multi-Drug Resistant Organisms History of MDRO: No Allergies Coded Allergies: Donepezil (Unverified Allergy, Unknown, UNKNOWN, 12/22/16) Sulfa Antibiotics (Verified Allergy, Unknown, LUMPS, 12/22/16) Zolpidem (Unverified Allergy, Unknown, UNKNOWN, 12/22/16) Aspirin (Verified Adverse Reaction, Unknown, STOMACH PAINS, 12/22/16) Home Medications Scheduled Aspirin (Aspirin Ec), 81 MG PO DAILY Cyclobenzaprine Hcl (Flexeril), 5 MG PO HS Cyclosporine (Ophth) (Restasis), 1 DROP OPB AMHS Dexlansoprazole (Dexilant), 60 MG PO DAILY Estrogens, Conjugated (Premarin), 0.45 MG PO DAILY Fluticasone Furoate-Vilanterol (Breo Ellipta 200-25 Mcg/INH), 1 PUFF INH QAM Fluticasone Propionate (Nasal) (Flonase Allergy Relief), 2 SPRAYS NIMA DAILY Gabapentin (Gabapentin), 100 MG PO BID Levothyroxine Sodium (Levothyroxine Sodium), 75 MCG PO DAILY Lidocaine (Lidocaine), 1 PATCH TOP DAILY Mirabegron (Myrbetriq Er), 50 MG PO DAILY Multivitamin (Multivitamin), 1 TAB PO DAILY Polyethylene Glycol 3350 (Miralax), 1 DOSE PO QAM Potassium Gluconate (Potassium Gluconate), 595 MG PO DAILY Sertraline HCl (Sertraline HCl), 100 MG PO BID Tiotropium [place] (Spiriva Handihaler), 1 CAP INH DAILY Scheduled PRN Albuterol (Ventolin), 2 PUFFS INH Q4-6HRS PRN for COPD Clonazepam (Clonazepam), 0.5 MG PO DAILY PRN for Anxiety Tramadol Hcl (Ultram), 50-100 MG PO Q6H PRN for Pain Review of Systems Couldn't obtain a full ROS given dementia Constitutional: No fever Respiratory: + cough, No shortness of breath, No sputum Abdomen: No nausea, No pain, No vomiting Musculoskeletal: + problem reported (chronic pain on b/l leg) Neurologic: No numbness/tingling, No weakness Physical Exam Vital Signs Date Time Temp Pulse Resp B/P Pulse Ox O2 Delivery O2 Flow Rate FiO2 12/22/16 15:24 87 22 169/100 94 Room Air 12/22/16 13:45 90 24 207/117 97 Room Air 12/22/16 13:36 82 12/22/16 12:30 83 20 144/96 98 Room Air 12/22/16 11:05 81 12/22/16 10:50 36.7 83 22 159/108 96 Room Air General Appearance: no apparent distress, + obese Head: normocephalic, + pertinent finding (bruises and swelling was noted on the left side of the head) Eyes: normal inspection, EOMI ENT: pharynx normal Neck: supple, trachea midline Respiratory/Chest: chest non-tender, lungs clear, normal breath sounds, no respiratory distress, no accessory muscle use Cardiovascular: regular rate, rhythm, no edema Abdomen/GI: normal bowel sounds, non tender, soft Extremities/Musculoskelatal: normal inspection, no pedal edema Neurologic/Psych: alert, + disoriented, + pertinent finding (baseline dementia) Skin: normal color, warm/dry Diagnostics Laboratory Results Results Past 24 Hours Test 12/22/16 11:10 12/22/16 11:55 Range/Units Urine Color YELLOW Urine Appearance CLEAR CLEAR Urine pH 6.5 4.5-7.5 Urine Specific [place] 1.027 1.000-1.030 Urine Protein NEG NEG Urine Glucose (UA) NEG NEG Urine Ketones NEG NEG Urine Occult Blood NEG NEG Urine Nitrite NEG NEG Urine Bilirubin NEG NEG Urine Urobilinogen NEG NEG Urine Leukocyte Esterase TRACE NEG Urine WBC (Auto) 1-5 0-5 /hpf Urine RBC (Auto) 0-4 0-4 /hpf Urine Hyaline Casts (Auto) 1-5 0-5 /lpf Urine Epithelial Cells (Auto) >30 0-5 /lpf Urine Bacteria (Auto) NEG NEG White Blood Count 5.98 4.8-10.8 K/uL Red Blood Count 4.29 4.2-5.4 M/uL Hemoglobin 13.2 12.0-16.0 g/dL Hematocrit 38.1 37-47 % Mean Corpuscular Volume 88.8 80-100 fL Mean Corpuscular Hemoglobin 30.8 25-34 pg Mean Corpuscular Hemoglobin Concent 34.6 32-36 g/dl Platelet Count 127 130-400 K/uL Mean Platelet Volume 10.4 7.4-10.4 fL Neutrophils (%) (Auto) 73.3 % Lymphocytes (%) (Auto) 17.1 % Monocytes (%) (Auto) 7.4 % Eosinophils (%) (Auto) 1.5 % Basophils (%) (Auto) 0.5 % Neutrophils # (Auto) 4.39 1.4-6.5 K/uL Lymphocytes # (Auto) 1.02 1.2-3.4 K/uL Monocytes # (Auto) 0.44 0.11-0.59 K/uL Eosinophils # (Auto) 0.09 0-0.5 K/uL Basophils # (Auto) 0.03 0-0.2 K/uL RDW Standard Deviation 47.4 36.4-46.3 fL RDW Coefficient of Variation 14.6 11.5-14.5 % Immature Granulocyte % (Auto) 0.2 % Immature Granulocyte # (Auto) 0.01 0.00-0.02 K/uL Prothrombin Time 10.7 9.0-12.0 SECONDS Prothromb Time International Ratio 1.0 0.9-1.1 Activated Partial Thromboplast Time 25.6 21.0-31.0 SECONDS Partial Thromboplastin Ratio 1.0 Sodium Level 141 136-145 mmol/L Potassium Level 4.0 3.5-5.1 mmol/L Chloride Level 107 98-107 mmol/L Carbon Dioxide Level 25 21-32 mmol/L Anion Gap 9.0 3-11 mmol/L Blood Urea Nitrogen 15 7-18 mg/dl Creatinine 0.85 0.60-1.20 mg/dl Est Creatinine Clear Calc Drug Dose 58.3 ml/min Estimated GFR () 74.0 Estimated GFR (Non- 63.8 BUN/Creatinine Ratio 17.6 10-20 Random Glucose 109 70-99 mg/dl Calcium Level 8.7 8.5-10.1 mg/dl Total Bilirubin 0.5 0.2-1 mg/dl Direct Bilirubin 0.1 0-0.2 mg/dl Aspartate Amino Transf (AST/SGOT) 21 15-37 U/L Alanine Aminotransferase (ALT/SGPT) 34 12-78 U/L Alkaline Phosphatase 71 45-117 U/L Troponin I < 0.015 0-0.045 ng/ml Total Protein 7.0 6.4-8.2 gm/dl Albumin 3.3 3.4-5.0 gm/dl Impression Assessment and Plan This is a 81 y/o female presented to the ED s/p fall. 1. Fall - Could be 2/2 dementia vs hypertension encephalopathy vs polymedicate - Patient fall could be multi factorial. Patient BP was elevated (159/108) in ED and she was not on any antihypertensive drugs. Also she is on multiple medications (benzo, Flexeril, gabapentin) that can also contribute to the fall. She also has baseline dementia. - CT of head showed no acute intracranial abnormality. Age-related change. No change from the prior study. - X-ray of the knee, humerus, femur, and pelvis were unremarkable and didn' t show any fracture. - PT/OT is ordered 2. HTN - Will start her on Amlodipine 10mg daily - IV hydralazine prn with Systolic BP>160 and Diastolic BP>110 3. COPD - Continue with the home medications - Spiriva INH and albuterol prn 4. Back Spasm - Will c/w Flexeril 5mg 5. Hypothyroidism - C/w Synthroid 75 mcg 6. Neuropathic pain - Gabapentin 100mg BID 7. Anxiety - Will c/w Zoloft 100mg BID - Hold Clonazepam 8. DVT prophylaxis - Heparin 5,000unit SQ BID 9. Code Status - DNR Dispo: Patient will waiting to be placed in SNF I agree with Resident assessment and plan and have seen and examined pt myself Pt with worsening dementia and repeated falls Needs likely SNF placement No metabolic or infectious etiology Pt disoriented Will tx htn urgency at this time CT head neg Consult PT/OT Level of Care Med/Surg Resuscitation Status DO NOT RESUSCITATE VTE Prophylaxis VTE Risk Assessment Done? Y/N: Yes Risk Level: Moderate Given or contraindicated: Unfractionated heparin SQ Note About 60minutes
[2016-12-22] MEDS: CYCLOBENZAPRINE HCL 5 MG TAB PO SCH (21:00)
[2016-12-22] MEDS: GABAPENTIN 100 MG CAP PO SCH (23:27)
[2016-12-22] MEDS: SERTRALINE HCL 100 MG TAB PO SCH (23:28)
[2016-12-22] MEDS: HEPARIN SOD 5000 UNIT/0.5 ML CARP SQ SCH (23:30)
[2016-12-23] MEDS: LEVOTHYROXINE 75 MCG TAB PO SCH (05:58)
[2016-12-23] MEDS: AMLODIPINE BESYLATE 5 MG TAB PO SCH (07:51)
[2016-12-23] MEDS: ESTROGENS, CONJUGATED 0.45 MG TAB PO SCH (07:51)
[2016-12-23] MEDS: GABAPENTIN 100 MG CAP PO SCH ×2 (07:51→20:40)
[2016-12-23] MEDS: MULTIVITAMIN TAB PO SCH (07:52)
[2016-12-23] MEDS: TIOTROPIUM BROMIDE 5 PUFF/90 MCG INH INH SCH (07:52)
[2016-12-23] MEDS: POLYETHYLENE (MIRALAX) 17 GM PACK PO SCH (07:53)
[2016-12-23] MEDS: PANTOprazole SOD 40 MG TAB PO SCH (07:53)
[2016-12-23] MEDS: SERTRALINE HCL 100 MG TAB PO SCH (07:53)
[2016-12-23] MEDS: ASPIRIN 81 MG ECTAB PO SCH (07:53)
[2016-12-23] MEDS: MIRABEGRON ER 25 MG TAB PO SCH (07:53)
[2016-12-23] MEDS: RESTASIS~ORDER AWAITING ACTION SCH ×4 (07:56→23:32)
[2016-12-23] MEDS: FLUTICASONE PROPIONATE NA SPR 16 GM BTL NAE SCH (07:56)
[2016-12-23] MEDS: HEPARIN SOD 5000 UNIT/0.5 ML CARP SQ SCH ×2 (07:56→20:54)
[2016-12-23 08:23] VITALS: BP 138/80; PULSE 79; TEMP 36.7; O2SAT 95
[2016-12-23] MEDS: LIDODERM (LIDOCAINE) PATCH 5% TD SCH (08:53)
[2016-12-23] MEDS ORDERED: NON-FORMULARY MEDICATION (Potassium Gluconate 595 MG) PO SCH (09:00)
[2016-12-23 09:39] VITALS: O2SAT 95
--- NOTE | 2016-12-23 11:21 | Hospitalist Progress Note ---
Hospitalist Progress Note Date of Service Dec 23, 2016. Subjective Pt evaluation today including: conversation w/ patient, conversation w/ family , chart review, lab review, conversation w/ managed services sales consultant patient falling at home prior to admission she does not remember events. History from family and rn home care Objective Vital Signs Date Time Temp Pulse Resp B/P Pulse Ox O2 Delivery O2 Flow Rate FiO2 12/23/16 09:39 95 Room Air 12/23/16 08:23 36.7 79 18 138/80 95 Room Air 12/23/16 08:10 Room Air 12/23/16 00:00 Room Air 12/22/16 18:34 36.9 80 18 144/86 93 Room Air 12/22/16 17:15 84 20 163/98 96 Room Air 12/22/16 15:24 87 22 169/100 94 Room Air 12/22/16 13:45 90 24 207/117 97 Room Air 12/22/16 13:36 82 12/22/16 12:30 83 20 144/96 98 Room Air Physical Exam General Appearance: WD/WN ENT: normal ENT inspection Neck: trachea midline Respiratory/Chest: chest non-tender Cardiovascular: regular rate, rhythm Abdomen: normal bowel sounds Extremities: normal range of motion Laboratory Results Last 24 Hours Test 12/22/16 11:55 White Blood Count 5.98 K/uL Red Blood Count 4.29 M/uL Hemoglobin 13.2 g/dL Hematocrit 38.1 % Mean Corpuscular Volume 88.8 fL Mean Corpuscular Hemoglobin 30.8 pg Mean Corpuscular Hemoglobin Concent 34.6 g/dl Platelet Count 127 K/uL Mean Platelet Volume 10.4 fL Neutrophils (%) (Auto) 73.3 % Lymphocytes (%) (Auto) 17.1 % Monocytes (%) (Auto) 7.4 % Eosinophils (%) (Auto) 1.5 % Basophils (%) (Auto) 0.5 % Neutrophils # (Auto) 4.39 K/uL Lymphocytes # (Auto) 1.02 K/uL Monocytes # (Auto) 0.44 K/uL Eosinophils # (Auto) 0.09 K/uL Basophils # (Auto) 0.03 K/uL RDW Standard Deviation 47.4 fL RDW Coefficient of Variation 14.6 % Immature Granulocyte % (Auto) 0.2 % Immature Granulocyte # (Auto) 0.01 K/uL Prothrombin Time 10.7 SECONDS Prothromb Time International Ratio 1.0 Activated Partial Thromboplast Time 25.6 SECONDS Partial Thromboplastin Ratio 1.0 Sodium Level 141 mmol/L Potassium Level 4.0 mmol/L Chloride Level 107 mmol/L Carbon Dioxide Level 25 mmol/L Anion Gap 9.0 mmol/L Blood Urea Nitrogen 15 mg/dl Creatinine 0.85 mg/dl Est Creatinine Clear Calc Drug Dose 58.3 ml/min Estimated GFR () 74.0 Estimated GFR (Non- 63.8 BUN/Creatinine Ratio 17.6 Random Glucose 109 mg/dl Calcium Level 8.7 mg/dl Total Bilirubin 0.5 mg/dl Direct Bilirubin 0.1 mg/dl Aspartate Amino Transf (AST/SGOT) 21 U/L Alanine Aminotransferase (ALT/SGPT) 34 U/L Alkaline Phosphatase 71 U/L Troponin I < 0.015 ng/ml Total Protein 7.0 gm/dl Albumin 3.3 gm/dl Diagnostic Results Medications (Trade) Dose Ordered Sig/Yamileth Route Start Time Stop Time Status Last Admin Dose Admin Lorazepam (Ativan Inj) 0.5 mg NOW STAT IV 12/22/16 14:01 12/22/16 14:02 DC 12/22/16 14:13 0.5 MG Heparin Sodium (Porcine) (Heparin Sq 5000 Unit/0.5ml) 5,000 unit Q12H SQ 12/22/16 21:00 01/21/17 20:59 12/22/16 23:30 5,000 UNIT Aspirin (Ecotrin Tab) 81 mg DAILY PO 12/23/16 09:00 01/22/17 08:59 12/23/16 07:53 81 MG Cyclobenzaprine HCl (Flexeril Tab) 5 mg HS PO 12/22/16 21:00 01/21/17 20:59 12/22/16 21:00 5 MG Gabapentin (Neurontin Cap) 100 mg BID PO 12/22/16 21:00 01/21/17 20:59 12/23/16 07:51 100 MG Mirabegron (Myrbetriq Er) 50 mg DAILY PO 12/23/16 09:00 01/22/17 08:59 12/23/16 07:53 50 MG Multivitamins (Multivitamin Tab) 1 tab DAILY PO 12/23/16 09:00 01/22/17 08:59 12/23/16 07:52 1 TAB Sertraline HCl (Zoloft Tab) 100 mg BID PO 12/22/16 21:00 01/21/17 20:59 12/23/16 07:53 100 MG Tiotropium [place] (Spiriva Handihaler Inhaler) 1 puff DAILY INH 12/23/16 09:00 01/22/17 08:59 12/23/16 07:52 1 PUFF Pantoprazole Sodium (Protonix Tab) 40 mg QAM PO 12/23/16 09:00 01/22/17 08:59 12/23/16 07:53 40 MG Estrogens Conjugated (Premarin Tab) 0.45 mg DAILY PO 12/23/16 09:00 01/22/17 08:59 12/23/16 07:51 0.45 MG Miscellaneous (Remove Lidoderm Patch) 1 ea DAILY@21 N/A 12/22/16 21:00 01/21/17 20:59 12/22/16 21:00 1 EA Amlodipine Besylate (Norvasc Tab) 10 mg QAM PO 12/23/16 09:00 01/22/17 08:59 12/23/16 07:51 10 MG Amlodipine Besylate (Norvasc Tab) 10 mg NOW ONCE PO 12/22/16 19:00 12/22/16 19:01 DC 12/22/16 23:27 10 MG Polyethylene (Miralax Powder Packet) 17 gm DAILY PO 12/23/16 09:00 01/22/17 08:59 12/23/16 07:53 17 GM Assessment and Plan (1) Counseling regarding advanced directives and goals of care Assessment & Plan: Case was discussed in detail with the patient's niece who is IRVING and her son. Their preference would be for the patient to return home. She has had two recent deaths within the past 30 days. They have noticed her declining since that time, with frequent falls the biggest concern for her present living condition. She does not need a sitter presently. Psychiatry will be consulted, and Palliative care. She has PT to work with her while she is in the hospital. Consideration for going to a snf versus returning home with added services will be contemplated. (2) Ambulatory dysfunction Assessment & Plan: fall precautions and PT eval and tx. (3) Multiple falls (4) Contusion of multiple sites Discharge planning: uncertain
[2016-12-23] MEDS ORDERED: CLONAZEPAM 0.5 MG TAB PO PRN (13:30)
[2016-12-23 15:02] VITALS: BP 122/72; PULSE 124; TEMP 36.6; O2SAT 96
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
[2016-12-23 16:00] VITALS: PULSE 84; O2SAT 96
[2016-12-23] MEDS: CYCLOBENZAPRINE HCL 5 MG TAB PO SCH (20:41)
[2016-12-23] MEDS: SERTRALINE HCL 50 MG TAB PO SCH (20:43)
[2016-12-23 23:58] VITALS: BP 112/70; PULSE 87; TEMP 36.9; O2SAT 91
[2016-12-24 06:59] VITALS: BP 113/65; PULSE 76; TEMP 36.3; O2SAT 95
[2016-12-24] MEDS: RESTASIS~ORDER AWAITING ACTION SCH (07:24)
[2016-12-24] MEDS: ESTROGENS, CONJUGATED 0.45 MG TAB PO SCH (08:30)
[2016-12-24] MEDS: SERTRALINE HCL 50 MG TAB PO SCH (08:31)
[2016-12-24] MEDS: LEVOTHYROXINE 75 MCG TAB PO SCH (08:33)
[2016-12-24] MEDS: ASPIRIN 81 MG ECTAB PO SCH (08:33)
[2016-12-24] MEDS: TIOTROPIUM BROMIDE 5 PUFF/90 MCG INH INH SCH (08:34)
[2016-12-24] MEDS: FLUTICASONE PROPIONATE NA SPR 16 GM BTL NAE SCH (08:34)
[2016-12-24] MEDS: MULTIVITAMIN TAB PO SCH (08:36)
[2016-12-24] MEDS: GABAPENTIN 100 MG CAP PO SCH ×2 (08:36→14:35)
[2016-12-24] MEDS: AMLODIPINE BESYLATE 5 MG TAB PO SCH (08:37)
[2016-12-24] MEDS: MIRABEGRON ER 25 MG TAB PO SCH (08:37)
[2016-12-24] MEDS: PANTOprazole SOD 40 MG TAB PO SCH (08:38)
[2016-12-24] MEDS: HEPARIN SOD 5000 UNIT/0.5 ML CARP SQ SCH (08:47)
[2016-12-24] MEDS: LIDODERM (LIDOCAINE) PATCH 5% TD SCH (08:49)
[2016-12-24] MEDS: POLYETHYLENE (MIRALAX) 17 GM PACK PO SCH (08:50)
[2016-12-24] MEDS ORDERED: VENLAFAXINE HCL XR 37.5 MG CAPXR PO SCH (09:00)
--- NOTE | 2016-12-24 09:14 | Palliative Care Consultation ---
Consultation Date of Consultation: Dec 24, 2016. Requesting Physician: Dr. Carlin Attending Physician: Dr. Carlin Reason for Consultation: ?Complicated grief vs. worsening dementia History of Present Illness This 81 year old female patient presented to the ED two days ago after multiple falls at home. She was found in the bathroom by her son sitting on the floor and stated that she hit her head on the bathtub. Later in the day she was found by a nurses' aid sitting on the bedroom floor. Neither fall was witnessed. She was brought to ED, CT of the head negative for anything acute. Per record, the patient's son, who she lives with, stated her dementia has seemed to be worsening recently-- she is more tearful and upset. Of note, patient has recently experienced two deaths in the family-- a duxkaag-ii-ped in November and a sister in December. This seems to be bout the time that patient began having worsening behaviors. Patient has been seen by psychiatry who is making changes to her depression medications. Palliative care consulted to provide extra layer of support to patient and family. I met with the patient in room 250-2. She currently has a 1:1 sitter. Patient awake and alert, but pleasantly confused. She really could not answer my questions appropriately and she was talking about how her is going to be coming soon. She was able to tell me that she has no pain or discomfort at this time. Occasionally has some aching back pain, but not right now. She is able to ambulate and feed herself, was about to eat breakfast when I was in the room. She really could not offer me a full ROS, history, or goals of care. At times she was just thinking for a long time when asked a question and couldn't come up with a response. I called patient's POAJanice, no answer-- left a message. Per documentation by watch case polisher, the patient is to return home with the son and [id number] with waiver services. She was getting 8hr/day of care and they are hoping to increase it to 12hr/day. Patient has a living will apparently , but we do not have a copy. If I'm able to speak with family today, I will discuss advance care planning. Past Medical/Surgical History Medical History: COPD Pneumonia UTI Dementia Hypothyroidism Depression Anxiety Back spasm Hypertension Surgical History: Cholecystectomy Social History Smoking Status: Never Smoker History of Alcohol Use: No Drug Use: none Marital Status: single Housing Status: lives with family Occupation Status: retired Review of Systems ENT: + hearing loss (hard of hearing) Respiratory: No cough, No shortness of breath Cardiac: No chest pain Abdomen: No nausea, No pain, No vomiting Psychiatric: + see HPI limited ROS due to patient's mental status Allergies Coded Allergies: Donepezil (Unverified Allergy, Unknown, UNKNOWN, 12/22/16) Sulfa Antibiotics (Verified Allergy, Unknown, LUMPS, 12/22/16) Zolpidem (Unverified Allergy, Unknown, UNKNOWN, 12/22/16) Aspirin (Verified Adverse Reaction, Unknown, STOMACH PAINS, 12/22/16) Medications Current Inpatient Medications Medications (Trade) Dose Ordered Sig/Yamileth Route Start Time Stop Time Status Last Admin Dose Admin Acetaminophen (Tylenol Tab) 650 mg Q4H PRN PO 12/22/16 17:00 01/21/17 16:59 Heparin Sodium (Porcine) (Heparin Sq 5000 Unit/0.5ml) 5,000 unit Q12H SQ 12/22/16 21:00 01/21/17 20:59 12/23/16 20:54 5,000 UNIT Albuterol (Ventolin Hfa Inhaler) 2 puffs Q4H PRN INH 12/22/16 17:00 01/21/17 16:59 Aspirin (Ecotrin Tab) 81 mg DAILY PO 12/23/16 09:00 01/22/17 08:59 12/23/16 07:53 81 MG Cyclobenzaprine HCl (Flexeril Tab) 5 mg HS PO 12/22/16 21:00 01/21/17 20:59 12/23/16 20:41 5 MG Fluticasone Propionate (Flonase Nasal [place]) 2 sprays DAILY NIMA 12/23/16 09:00 01/22/17 08:59 Levothyroxine Sodium (Synthroid Tab) 75 mcg DAILYBB PO 12/23/16 06:30 01/22/17 06:29 Lidocaine (Lidoderm Patch 5%) 1 patch DAILY TD 12/23/16 09:00 01/22/17 08:59 Mirabegron (Myrbetriq Er) 50 mg DAILY PO 12/23/16 09:00 01/22/17 08:59 12/23/16 07:53 50 MG Multivitamins (Multivitamin Tab) 1 tab DAILY PO 12/23/16 09:00 01/22/17 08:59 12/23/16 07:52 1 TAB Tiotropium [place] (Spiriva Handihaler Inhaler) 1 puff DAILY INH 12/23/16 09:00 01/22/17 08:59 12/23/16 07:52 1 PUFF Tramadol HCl (Ultram Tab) 50 mg Q6H PRN PO 12/22/16 17:00 01/21/17 16:59 12/23/16 12:10 50 MG Miscellaneous Information (Order Awaiting Action) 1 ea QS N/A 12/22/16 19:00 01/21/17 18:59 Pantoprazole Sodium (Protonix Tab) 40 mg QAM PO 12/23/16 09:00 01/22/17 08:59 12/23/16 07:53 40 MG Estrogens Conjugated (Premarin Tab) 0.45 mg DAILY PO 12/23/16 09:00 01/22/17 08:59 12/23/16 07:51 0.45 MG Miscellaneous Information (Order Awaiting Action) 1 ea QS N/A 12/22/16 19:00 01/21/17 18:59 Miscellaneous (Remove Lidoderm Patch) 1 ea DAILY@21 N/A 12/22/16 21:00 01/21/17 20:59 12/23/16 20:42 1 EA Amlodipine Besylate (Norvasc Tab) 10 mg QAM PO 12/23/16 09:00 01/22/17 08:59 12/23/16 07:51 10 MG Hydralazine HCl (HydrALAZINE INJ) 20 mg Q4H PRN IV. 12/22/16 17:00 01/21/17 16:59 Polyethylene (Miralax Powder Packet) 17 gm DAILY PO 12/23/16 09:00 01/22/17 08:59 12/23/16 07:53 17 GM Miscellaneous (Iv Fluids Completed) 1 ea PRN PRN N/A 12/22/16 19:30 12/22/17 19:29 Clonazepam (Klonopin Tab) 0.5 mg 3XDQ4 PRN PO 12/23/16 13:30 01/22/17 13:29 12/23/16 20:10 0.5 MG Sertraline HCl (Zoloft Tab) 75 mg Taper BID PO 12/23/16 21:00 01/01/17 20:59 12/23/16 20:43 75 MG Venlafaxine HCl (effeXOR EXTENDED REL CAP) 37.5 mg QAM PO 12/24/16 09:00 01/23/17 08:59 Gabapentin (Neurontin Cap) 100 mg TID PO 12/23/16 21:00 01/22/17 20:59 12/23/16 20:40 100 MG Physical Exam Date Time Temp Pulse Resp B/P Pulse Ox O2 Delivery O2 Flow Rate FiO2 12/24/16 06:59 36.3 76 20 113/65 95 12/24/16 00:00 Room Air 12/23/16 23:58 36.9 87 18 112/70 91 Room Air 12/23/16 16:00 96 Room Air 12/23/16 16:00 84 12/23/16 15:02 36.6 124 18 122/72 96 Room Air 12/23/16 09:39 95 Room Air General Appearance: no apparent distress, + obese Eyes: + pertinent finding (glasses) Neck: no JVD Respiratory: no respiratory distress, no accessory muscle use, + pertinent finding (room air) Cardiovascular: regular rate, rhythm, no edema Abdomen: non tender, soft Neurologic/Psychiatric: alert, + disoriented, + pertinent finding (pleasant at this time) Assessment & Plan Palliative Performance Scale: 70 % Problem list: Altered mental status/dementia Depression- ?Complicated grief Multiple mechanical falls, unwitnessed Goals of care Palliative care plan: -Depression managed by psychiatry -Patient denies any pain or symptoms at this time, has PRN tramadol ordered -Goal is to get patient back to her son's home with caregivers -Record indicates that there is a living will- will request copy if I speak to family. Will also discuss advance care planning Thank you kindly for this consult I will follow as needed.
[2016-12-24 11:47] VITALS: BP 133/81; PULSE 78; O2SAT 96
[2016-12-24] MEDS ORDERED: EFFSR375 PO (15:06)
[2016-12-24] MEDS ORDERED: ZLF50 PO (15:06)
[2016-12-24] MEDS ORDERED: NRV5 PO (15:06)
--- NOTE | 2016-12-24 15:09 | Discharge Instructions ---
Discharge Instructions Date of Service Dec 24, 2016. Admission Reason for Admission: Fall, Multiple Falls Discharge Discharge Diagnosis / Problem: Encephopathy secondary to dementia, depression, grief Discharge Goals Goal(s): Improve function Activity Recommendations Activity Limitations: per Instructions/Follow-up section . Instructions / Follow-Up Instructions / Follow-Up Primary care physician in 1 week Current Hospital Diet Patient's current hospital diet: AHA Diet (Heart Healthy) Discharge Diet Recommended Diet: Regular Diet, AHA Diet (Heart Healthy) Pending Studies Studies pending at discharge: no Medical Emergencies . Who to Call and When: Medical Emergencies: If at any time you feel your situation is an emergency, please call 911 immediately. . Non-Emergent Contact Non-Emergency issues call your: Primary Care Provider . Past History Medical & Surgical History: (1) Dementia (2) Multiple falls . "Provider Documentation" section prepared by Jm Carlin. VTE Core Measure Inpt VTE Proph given/why not?: Unfractionated heparin SQ
[2016-12-24 15:13] VITALS: BP 133/81; PULSE 78; TEMP 36.3; O2SAT 96
--- NOTE | 2017-01-04 13:42 | DISCHARGE SUMMARY ---
Please see dictated H\T\P for full details of her presentation. BRIEFLY: The patient is an 81-year-old, history of dementia who came in after a fall. The patient lives with one of her sons. The son takes care of her at night and nurse's aids come in during the day. On the day of admission, around 6:00 a.m., the patient was found in the bathroom by the caregiver after a fall. She hit her head on the bathtub. No one witnessed the fall, according to the brother she did lose consciousness, later in the morning the patient was found sitting on the floor near her dresser by the nurse's aide. No one witnessed the fall that time either. The patient has dementia which had been progressively getting worse. She was brought in for workup of her frequent falls. She was felt to have acute encephalopathy versus polypharmacy and uncontrolled hypertension. CT of the head showed no acute intracranial abnormality. X-rays of the knee, humerus, femur and pelvis were unremarkable, did not showed fracture. PT and OT was ordered and amlodipine was started for her high blood pressure. Neurontin was continued for neuropathic pain and Zoloft was continued for anxiety. Code status was do not resuscitate. The patient was discovered to have 2 recent losses of family members. A palliative care consultation was obtained and a psychiatric consultation was obtained. Psychiatric consultation by Dr. Castro. Dr. Castro believe that she had depression, which was being treated by her primary care physician with worsening mood over the past 1-2 months in the context of multiple deaths in the family and worsening dementia. Dr. Castro recommended switching antidepressants. Dr. Castro recommended tapering down the sertraline and switching to venlafaxine XR to decreasing the sertraline to 75 mg twice a day for 3 days, 50 mg twice a day for 3 days and then decrease to 25 mg twice a day for 3 days and then discontinue and the venlafaxine XR 37.5 mg daily and that can be titrated to an effective dose. Dr. Erwin is the patient's primary care physician and Dr. Castro also recommended avoiding benzodiazepines since that would increase her risk of fall and recommended increasing gabapentin since that seemed to help with her neuropathic pain. The patient was seen by Temi Jaime for palliative care and an additional layer of caring, 8 hours of care were being provided a day and with case management the plan was to increase that care to 12 hours a day. This was successfully performed and the patient was discharged home in stable condition on December 24. DISCHARGE DIAGNOSES: 1. Acute encephalopathy secondary to advancing dementia, depression and grief. 2. Multiple falls. 3. Hypertension. 4. Neuropathic pain. 5. Depression. 6. Progressive dementia. Time spent in review of the chart, discussion with the patient and family on the day of discharge - 35 minutes.
[2017-02-19] MEDS ORDERED: FLUT0.15 NAE (11:57)
[2017-02-19] MEDS ORDERED: LDDP5 TOP (11:57)
[2017-02-19] MEDS ORDERED: POTA1TAB PO (12:32)
[2017-02-19] MEDS ORDERED: MULT-506 PO (13:45)
[2017-02-19] MEDS ORDERED: KLN5X PO (14:20)
[2017-02-19] MEDS ORDERED: FLUT1INH7 INH (14:20)
[2017-02-19] MEDS ORDERED: CYCL5TAB PO (14:20)
[2017-02-19] MEDS ORDERED: NRN100 PO (14:20)
== END 2016-12-24 15:45 | disposition home or self-care (01) ==
LOC: ENRESERVDT → ENRESERVTM → EDBD 10:33 → C.EDA 10:34 → EDBEDREQ 17:11 → C.MS2W 17:18 → EDBEDREQ 17:24
PROVIDERS: ADMIT Hospitalist; ATTEND Hospitalist
DX: F03.90 Unspecified dementia, unspecified severity, without behavioral disturbance, psychotic disturbance, mood disturbance, and anxiety (principal); G93.40 Encephalopathy, unspecified; I10 Essential (primary) hypertension; F32.9 Major depressive disorder, single episode, unspecified; R60.9 Edema, unspecified; Z51.5 Encounter for palliative care; Z79.82 Long term (current) use of aspirin; W19.XXXA Unspecified fall, initial encounter; J44.9 Chronic obstructive pulmonary disease, unspecified; M62.830 Muscle spasm of back; E03.9 Hypothyroidism, unspecified; G62.9 Polyneuropathy, unspecified; F41.9 Anxiety disorder, unspecified; Z66 Do not resuscitate

== ENCOUNTER 2017-02-19 17:19 | Emergency (ER) | payer BC, OTHER ==
[~2017-02-19 17:19] MED LIST changes: +CYCL5TAB PO; +EFFSR375 PO; +FLUT0.15 NAE; +FLUT1INH7 INH; -FLX/5 PO; +KLN5X PO; +LDDP5 TOP; +MULT-506 PO; +NRN100 PO; +NRV5 PO; +POTA1TAB PO; +PRM/45 PO; -VNTHFA/IN INH; -ZLF/100 PO; +ZLF50 PO
[2017-02-19 17:22] VITALS: TEMP 36.8; Ht 162.6 cm
[2017-02-19] MEDS ORDERED: LEVO75TA5 PO (17:37)
[2017-02-19] MEDS ORDERED: CYCL0.052 OPB (17:37)
[2017-02-19] MEDS ORDERED: ULT/50 PO (17:37)
[2017-02-19] MEDS ORDERED: POLY335025 PO (17:39)
[2017-02-19] MEDS ORDERED: ASPI81TA28 PO (17:39)
[2017-02-19 18:38] LABS: BASO % 0.4 %; BASO ABS # 0.03 K/uL (0-0.2); COMPLETE YES; EOS % 1.6 %; HEMATOCRIT 41.3 % (37-47); IG% 0.3 %; LYMPH ABS # 1.69 K/uL (1.2-3.4); MEAN CELL VOLUME 89.6 fL (80-100); MEAN CORPUSCULAR HGB CONC 34.6 g/dl (32-36); MEAN PLATELET VOLUME 10.1 fL (7.4-10.4); MONO % 6.5 %; NEUT % 67.2 %; PLATELET COUNT 151 K/uL (130-400); RED BLOOD COUNT 4.61 M/uL (4.2-5.4); WHITE BLOOD COUNT 7.04 K/uL (4.8-10.8)
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
[2017-02-19 18:56] LABS: ALT/SGPT 32 U/L (12-78); BLOOD UREA NITROGEN 14 mg/dl (7-18); BUN/CREATININE RATIO 14.7 (10-20); CARBON DIOXIDE 27 mmol/L (21-32); CHLORIDE 106 mmol/L (98-107); CREATININE 0.93 mg/dl (0.60-1.20); GLUCOSE 143 mg/dl (70-99); MAGNESIUM 2.3 mg/dl (1.8-2.4); SODIUM 140 mmol/L (136-145)
[2017-02-19 19:00] LABS: ALKALINE PHOSPHATASE 96 U/L (45-117); AST/SGOT 21 U/L (15-37); CKMB/CK RATIO 1.8 (0-3.0)
[2017-02-19 19:07] LABS: PROTHROMBIN TIME (PATIENT) 10.2 SECONDS (9.0-12.0)
[2017-02-19 19:20] LABS: URINE APPEARANCE CLOUDY (CLEAR); URINE BILIRUBIN NEG (NEG); URINE COLOR DK YELLOW; URINE EPITHELIAL CELL AUTO >30 /lpf (0-5); URINE NITRITE POS (NEG); URINE PH 5.5 (4.5-7.5); UROBILINOGEN NEG (NEG); ZZUR CULT IF INDIC CLEAN CATCH YES
[2017-02-19 19:34] LABS: MANUAL MICROSCOPIC REQUIRED? NO; REVIEW REQ? NO
--- NOTE | 2017-02-19 19:46 | DIAGNOSTIC IMAGING REPORT ---
HEAD CT NONCONTRAST CT DOSE: 537.48 mGy.cm HISTORY: Altered mental status. TECHNIQUE: Multiaxial CT images of the head were performed without the use of intravenous contrast. Automated exposure control was utilized for this study. Comparison: Head CT 12/22/2016. Findings: The paranasal sinuses and mastoid air cells are clear. The calvarium and skull base are intact. There is no mass, hematoma, midline shift, acute infarct. White matter hypodensity is nonspecific but suggestive of microvascular ischemic change. The ventricles and sulci demonstrate mild age-related involutional changes. Impression: No acute intracranial abnormality. Atrophy and microvascular ischemic changes. Electronically signed by: Waldo Falcon M.D. 02/19/2017 7:44 PM Dictated Date/Time: 02/19/2017 7:41 PM
[2017-02-19] MEDS ORDERED: DEXL60CA4 PO (19:57)
[2017-02-19] MEDS ORDERED: CEPHALEXIN MONOHYDRATE 250 MG CAP PO ONE (20:15)
[2017-02-19 20:17] LABS: BENZODIAZEPINE, URINE NEG (NEG); COCAINE,URINE NEG (NEG); PHENCYCLIDINE, URINE NEG (NEG)
[2017-02-19 20:43] LABS: CALCIUM 9.7 mg/dl (8.5-10.1)
[2017-02-19] MEDS ORDERED: LORAZEPAM 0.5 MG TAB SL STA (21:13)
[2017-02-19] MEDS ORDERED: MYR25 PO (22:57)
[2017-02-19] MEDS ORDERED: TIOT1SPR INH (22:57)
[2017-02-19] MEDS ORDERED: VENL37.593 PO (22:57)
[2017-02-19] MEDS ORDERED: VNTHFA/IN INH (22:57)
[2017-02-19] MEDS ORDERED: NRV/5 PO (22:57)
[2017-02-19 23:03] VITALS: BP 156/93; PULSE 82; O2SAT 97
== END 2017-02-19 23:04 ==
LOC: C.EDB 17:19 → C.EDA 23:04
DX: R45.6 Violent behavior (principal); N39.0 Urinary tract infection, site not specified; J44.9 Chronic obstructive pulmonary disease, unspecified; F03.90 Unspecified dementia, unspecified severity, without behavioral disturbance, psychotic disturbance, mood disturbance, and anxiety; F33.41 Major depressive disorder, recurrent, in partial remission; Z79.82 Long term (current) use of aspirin; Z79.899 Other long term (current) drug therapy

== ENCOUNTER → 2017-05-19 | Outpatient (CLI) | payer BC, OTHER ==
[~2017-05-19] MED LIST changes: -ALBUAER2 INH; +ASPI81TA28 PO; +CYCL0.052 OPB; +DEXL60CA4 PO; -EFFSR375 PO; +LEVO75TA5 PO; -MIRA1TAB3 PO; +MYR25 PO; +NRV/5 PO; -NRV5 PO; +POLY335025 PO; -PRM/45 PO; -SPRIN/30 INH; +TIOT1SPR INH; +ULT/50 PO; +VENL37.593 PO; +VNTHFA/IN INH; -ZLF50 PO
[2017-05-19 19:27] LABS: URINE APPEARANCE CLOUDY (CLEAR); URINE BILIRUBIN NEG (NEG); URINE COLOR YELLOW; URINE NITRITE POS (NEG); URINE PH 5.5 (4.5-7.5); UROBILINOGEN NEG (NEG)
[2017-05-19 19:29] LABS: MANUAL MICROSCOPIC REQUIRED? NO; REVIEW REQ? NO
== END ==
LOC: C.LABCC 17:47
PROVIDERS: ATTEND Internal Medicine
DX: R41.82 Altered mental status, unspecified (principal)

== ENCOUNTER → 2017-05-20 | Outpatient (CLI) | payer BC, OTHER ==
[2017-05-20 08:20] LABS: BASO % 0.9 %; BASO ABS # 0.04 K/uL (0-0.2); COMPLETE YES; EOS % 6.3 %; HEMATOCRIT 37.5 % (37-47); IG% 0.2 %; LYMPH % 30.1 %; LYMPH ABS # 1.34 K/uL (1.2-3.4); MEAN CELL VOLUME 90.1 fL (80-100); MEAN CORPUSCULAR HEMOGLOBIN 30.8 pg (25-34); MEAN CORPUSCULAR HGB CONC 34.1 g/dl (32-36); MEAN PLATELET VOLUME 10.7 fL (7.4-10.4); MONO % 6.1 %; NEUT % 56.4 %; PLATELET COUNT 104 K/uL (130-400); RED BLOOD COUNT 4.16 M/uL (4.2-5.4); WHITE BLOOD COUNT 4.45 K/uL (4.8-10.8)
[2017-05-20 08:33] LABS: ALT/SGPT 24 U/L (12-78); AST/SGOT 14 U/L (15-37); BLOOD UREA NITROGEN 11 mg/dl (7-18); BUN/CREATININE RATIO 11.1 (10-20); CALCIUM 8.6 mg/dl (8.5-10.1); CARBON DIOXIDE 28 mmol/L (21-32); CHLORIDE 109 mmol/L (98-107); CREATININE 0.97 mg/dl (0.60-1.20); GLUCOSE 120 mg/dl (70-99); SODIUM 142 mmol/L (136-145)
[2017-05-20 08:41] LABS: ALB/GLOB RATIO 0.8 (0.9-2); ALKALINE PHOSPHATASE 80 U/L (45-117)
== END ==
LOC: C.LABCC 08:06
PROVIDERS: ATTEND Internal Medicine
DX: R41.0 Disorientation, unspecified (principal); E03.9 Hypothyroidism, unspecified

== ENCOUNTER → 2017-07-07 | Outpatient (CLI) | payer BC, OTHER | LOC: C.LABCC 09:06 | PROVIDERS: ATTEND Internal Medicine | DX: E03.9 Hypothyroidism, unspecified (principal) ==

== ENCOUNTER → 2017-08-19 | Outpatient (CLI) | payer BC, OTHER | LOC: C.LABCC 08:30 | PROVIDERS: ATTEND Internal Medicine | DX: E03.9 Hypothyroidism, unspecified (principal) ==

== ENCOUNTER → 2017-10-19 | Outpatient (CLI) | payer BC, OTHER ==
[2017-10-19 09:31] LABS: BASO % 0.9 %; BASO ABS # 0.04 K/uL (0-0.2); EOS % 3.8 %; EOS ABS # 0.17 K/uL (0-0.5); HEMATOCRIT 38.3 % (37-47); HEMOGLOBIN 12.7 g/dL (12.0-16.0); IG# 0.02 K/uL (0.00-0.02); LYMPH % 30.4 %; LYMPH ABS # 1.35 K/uL (1.2-3.4); MEAN CELL VOLUME 88.7 fL (80-100); MEAN CORPUSCULAR HEMOGLOBIN 29.4 pg (25-34); MEAN CORPUSCULAR HGB CONC 33.2 g/dl (32-36); MEAN PLATELET VOLUME 11.2 fL (7.4-10.4); MONO % 7.9 %; MONO ABS # 0.35 K/uL (0.11-0.59); NEUT % 56.5 %; NEUT ABS # 2.51 K/uL (1.4-6.5); PLATELET COUNT 111 K/uL (130-400); RED CELL DISTRIBUTION WIDTH CV 14.5 % (11.5-14.5); RED CELL DISTRIBUTION WIDTH SD 47.3 fL (36.4-46.3); WHITE BLOOD COUNT 4.44 K/uL (4.8-10.8)
[2017-10-19 09:47] LABS: BLOOD UREA NITROGEN 16 mg/dl (7-18); CALCIUM 8.9 mg/dl (8.5-10.1); CARBON DIOXIDE 26 mmol/L (21-32); CREATININE 0.79 mg/dl (0.60-1.20); GLUCOSE 114 mg/dl (70-99); POTASSIUM 3.9 mmol/L (3.5-5.1); SODIUM 142 mmol/L (136-145)
== END ==
LOC: C.LABCC 08:32
PROVIDERS: ATTEND Internal Medicine
DX: J44.9 Chronic obstructive pulmonary disease, unspecified (principal); I10 Essential (primary) hypertension; F03.90 Unspecified dementia, unspecified severity, without behavioral disturbance, psychotic disturbance, mood disturbance, and anxiety; E03.9 Hypothyroidism, unspecified